=== PATIENT | female | born 1990 | race Two or more races ===

== ENCOUNTER → 2023-12-23 | Outpatient (CLI) | payer MEDICAID ==
[2023-12-23 09:16] LABS: Urine Blood Negative /uL (Negative); Urine Clarity Clear (Clear); Urine Color Yellow (Yellow); Urine Protein, UAD TRACE (Negative); Urine Specific Gravity 1.035 (1.001-1.035); Urine Urobilinogen Normal (Negative); Urine pH 5.5 (5.0-9.0)
[2023-12-23 09:18] LABS: Alanine Aminotransferase 56 U/L (7-40); Alkaline Phosphatase 98 U/L (46-116); Anion Gap 9 (5-15); Aspartate Aminotransferase 40 U/L (13-40); BUN/Creatinine Ratio 13.3 (10.0-20.0); Blood Urea Nitrogen 11 mg/dL (9-23); Calcium 9.5 mg/dL (8.5-10.1); Carbon Dioxide 24 mmol/L (20-30); Chloride 105 mmol/L (98-107); Cholesterol 182 mg/dL (< 200); Glucose 96 mg/dL (74-106); HDL Cholesterol 47 mg/dL (40-59); LDL Cholesterol 122 mg/dL (< 100); Potassium 4.4 mmol/L (3.5-5.1); Sodium 138 mmol/L (136-145); Triglycerides 182 mg/dL (< 150)
[2023-12-23 09:19] LABS: Bilirubin, Total 0.3 mg/dL (0.2-1.0); Total Protein 8.2 g/dL (5.7-8.2)
[2023-12-23 09:21] LABS: Albumin 4.8 g/dL (3.2-4.8)
[2023-12-23 10:07] LABS: Basophils % (auto) 0.6 % (0.0-2.0); Eosinophils # (auto) 0.1 10 ^3/uL (0-0.8); Hemoglobin 9.6 g/dL (12.2-16.2); Lymphocytes # (auto) 2.1 10 ^3/uL (0.4-5.4); Mean Corpuscular Volume 60.7 fL (80.0-100.0); Monocytes # (auto) 0.6 10 ^3/uL (0-1.3); Neutrophils # (auto) 5.6 10 ^3/uL (1.6-8.6)
[2023-12-23 10:09] LABS: Basophils # (auto) 0.1 10 ^3/uL (0-0.2); Eosinophils % (auto) 1.1 % (0.0-7.0); Hematocrit 32.8 % (36.0-46.0); Lymphocytes % (auto) 24.7 % (10.0-50.0); Mean Corpuscular Hemoglobin 17.8 pg (28.0-32.0); Mean Corpuscular Hgb Conc. 29.3 g/dL (32.0-36.0); Monocytes % (auto) 6.8 % (0.0-12.0); Neutrophils % (auto) 66.8 % (37.0-80.0); Nucleated Red Blood Cells % 0.3 %; Red Cell Distribution Width 19.3 % (11.8-14.3); White Blood Cell 8.3 10^3/uL (4.4-10.8)
[2023-12-23 12:29] LABS: Platelet Estimate Adequate
[2023-12-23 12:30] LABS: Hypochromia Marked
[2023-12-24 08:06] LABS: Thyroid Peroxidase (TPO) Ab <9 IU/mL (0-34)
[2023-12-24 19:06] LABS: Chlamydia Trachomatis, NAA Negative (Negative); Neisseria gonorrhoeae, NAA Negative (Negative)
== END | disposition home or self-care (01) ==
LOC: LAB 08:10
PROVIDERS: ATTEND Internal Medicine
DX: Z00.00 Encounter for general adult medical examination without abnormal findings (principal); E04.1 Nontoxic single thyroid nodule
CPT/HCPCS: 36415; 80053; 80061; 81003; 83036; 84443; 85025; 86376; 86592; 86703

== ENCOUNTER 2024-02-13 21:43 | Emergency (ER) | payer MEDICAID, OTHER ==
[~2024-02-13] VITALS: Ht 157.5 cm; Wt 112.4 kg
[2024-02-14] MEDS: KETOROLAC TROMETH 60MG/2ML VIAL IM ONE (03:30)
[2024-02-14 04:52] VITALS: BP 131/57; PULSE 98; RESP 18; TEMP 97.8; O2SAT 99
[2024-02-14] MEDS ORDERED: IBUP-1455 PO (04:55)
== END 2024-02-14 05:44 | disposition home or self-care (01) ==
LOC: ER 21:43
DX: M79.18 Myalgia, other site (principal); R10.30 Lower abdominal pain, unspecified; M25.532 Pain in left wrist; M25.522 Pain in left elbow; V89.2XXA Person injured in unspecified motor-vehicle accident, traffic, initial encounter; Y93.89 Activity, other specified; Y92.89 Other specified places as the place of occurrence of the external cause; Y99.8 Other external cause status
CPT/HCPCS: 71250; 72125; 73080; 73110; 74176; 96372; 99285; J1885